=== PATIENT | female | born 1960 | race Caucasian/White ===

== ENCOUNTER 2017-04-04 10:23 | Emergency (ER) | payer OTHER ==
[~2017-04-04] VITALS: Ht 157.5 cm; Wt 102.0 kg
[~2017-04-04 10:23] MED LIST: ALBU8.5H3 INH; AMLO-147 PO; BENA40TA41 PO; BUPR100T14 PO; BUSP10TA2 PO; CITROMA PO; FAMO20TA18 PO; GLIM4TAB PO; METF1000 PO; NAPR-688 PO; ONDA4TAB35 PO; PIOG15TA4 PO; POLY17PO6 PO; PRAV40TA76 PO
[2017-04-04 10:25] VITALS: Ht 157.5 cm; Wt 102.0 kg
[2017-04-04] MEDS ORDERED: SOD CHLORIDE 0.9% 1,000 ML IV STA (12:58)
[2017-04-04 13:32] LABS: BASOPHILS % 0.3 % (0.0-2.0); EOSINOPHILS # 0.2 10^3/ul (0.0-0.5); EOSINOPHILS % 1.6 % (0.0-7.0); HEMATOCRIT 40.3 % (37.0-47.0); HEMOGLOBIN 13.2 g/dl (12.0-16.0); LYMPHOCYTES # 2.6 10^3/ul (0.8-2.9); LYMPHOCYTES % 23.7 % (15.0-51.0); MEAN CORPUSCULAR HEMOGLOBIN 29.4 pg (29.0-33.0); MEAN CORPUSCULAR HGB CONC 32.8 g/dl (32.0-37.0); MEAN CORPUSCULAR VOLUME 89.8 fl (82.0-101.0); MEAN PLATELET VOLUME 11.3 fl (7.4-10.4); MONOCYTE # 0.7 10^3/ul (0.3-0.9); MONOCYTES % 6.6 % (0.0-11.0); NEUTROPHIL # 7.4 10^3/ul (1.6-7.5); NEUTROPHILS % 67.4 % (39.0-77.0); PLATELET COUNT 269 10^3/UL (140-415); RED BLOOD COUNT 4.49 10^6/ul (4.20-5.40); RED CELL DISTRIBUTION WIDTH 13.2 % (11.5-14.5)
--- NOTE | 2017-04-04 13:38 | RADRPT ---
PROCEDURE: CT Brain without contrast. CLINICAL INDICATION: Syncope TECHNIQUE: CT scan of the brain was performed on a multidetector high-resolution CT scan. Axial im aging was obtained of the brain without contrast administration. Coronal and sagittal reformatted i mages were obtained from the axial source images. Standard CT scan of the head without contrast prot ocols were performed. The total exam CTDI equals 43.95 mGy and the total exam DLP equals 630.2 mGy-cm. One or more of the following dose reduction techniques were used: - Automated exposure control. - Adjustment of the mA and/or kV according to patient size. Use of iterative reconstruction technique. COMPARISON: None. FINDINGS: The ventricular system and peripheral CSF spaces are unremarkable. Negative for intracranial masses hemorrhages or midline shift. Ashley-white matter junction is unremarkable. The bones and calvarium are intact. The paranasal sinuses and mastoids are unremarkable. IMPRESSION: Negative CT scan of the head without contrast. RPTAT:AAJJ Physician Wilma Date Time Electronically viewed and signed by Physician Wilma on 04/04/2017 13:38 /
[2017-04-04 13:47] LABS: INR 0.91; PROTIME 12.3 Sec (12.2-14.2)
[2017-04-04 13:48] LABS: PARTIAL THROMBOPLASTIN TIME 29.2 Sec (25.0-35.0)
[2017-04-04 13:49] LABS: ANION GAP 19 (8-16); BLOOD UREA NITROGEN 13 mg/dl (7-20); CALCIUM 9.8 mg/dl (8.4-10.2); CARBON DIOXIDE 29 mmol/L (21-31); CHLORIDE 101 mmol/L (97-110); CREATININE 0.67 mg/dl (0.44-1.00); GLUCOSE 159 mg/dl (70-220); POTASSIUM 4.8 mmol/L (3.5-5.1); SODIUM 144 mmol/L (135-144)
--- NOTE | 2017-04-04 13:58 | RADRPT ---
PROCEDURE: XR left Knee. CLINICAL INDICATION: Trauma with pain. TECHNIQUE: 3 views of the left knee are available for review. Evaluation is partially limited due to the patient's body habitus with the notch view significantly limited due to positioning and the p atient's body habitus. COMPARISON: None available FINDINGS: There is no acute fracture, dislocation, or other osteoarticular abnormality. There is tricompartme ntal osteoarthritis, which is mild to moderate in the medial femorotibial compartment. There is an apparent soft tissue defect within the posteromedial tissues overlying the distal femoral diaphysis. There is questionable fullness within the underlying hamstrings musculature. The osseous mineraliz ation is within normal limits. There is no radiopaque foreign body. IMPRESSION: 1. Negative for acute fracture or dislocation. 2. Apparent soft tissue defect within the posteromedial soft tissues overlying the distal femoral d iaphysis with questionable fullness in the underlying hamstrings musculature. Direct visualization is recommended. CT or MRI can be performed for further evaluation. 3. Tricompartmental osteoarthritis, which is mild to moderate in the medial femorotibial compartmen t. RPTAT: GG .Jamir Monroe MD, MD Date Time Electronically viewed and signed by .Jamir Monroe MD, MD on 04/04/2017 13:58 .P/
[2017-04-04 14:03] LABS: TROPONIN-I < 0.012 ng/ml (0.00-0.12)
[2017-04-04] MEDS ORDERED: morphine 4 MG/ML VIAL IV STA (16:21)
[2017-04-04] MEDS ORDERED: KETOROLAC 30 MG INJ IV STA (16:21)
[2017-04-04 16:39] LABS: ADD UMIC YES; UR ASCORBIC ACID NEGATIVE (NEGATIVE); UR BILIRUBIN (Dip) NEGATIVE (NEGATIVE); UR BLOOD (Dip) NEGATIVE (NEGATIVE); UR CLARITY CLEAR (CLEAR); UR COLOR YELLOW (YELLOW); UR GLUCOSE (Dip) NEGATIVE (NEGATIVE); UR KETONES (Dip) NEGATIVE (NEGATIVE); UR LEUKOCYTE ESTERASE (Dip) 1+ Leu/ul (NEGATIVE); UR NITRITE (Dip) NEGATIVE (NEGATIVE); UR RBC 0 /HPF (0-5); UR SPECIFIC GRAVITY (Dip) 1.008 (1.003-1.030); UR TOTAL PROTEIN (Dip) NEGATIVE (NEGATIVE); UR UROBILINOGEN (Dip) NEGATIVE (NEGATIVE)
[2017-04-04] MEDS ORDERED: CEFTRIAXONE 1 GM/50 ML (PMX) 50 ML IVPB ONE (19:00)
[2017-04-04] MEDS ORDERED: HYDROCODONE/APAP (5/325) TAB PO ONE (20:30)
--- NOTE | 2017-04-04 20:37 | RADRPT ---
PROCEDURE: CT left knee without contrast. CLINICAL INDICATION: Evaluate soft tissue defects seen on prior radiographs. History of trauma wi th pain. TECHNIQUE: CT scan of the left knee was performed on a multi -slice scanner. No IV contrast was a dministered. Coronal and sagittal reformatted images were obtained from the axial source images. T he total exam DLP equals 742 mGy-cm. The CDTI volume was 18 mGy. Images were reviewed on a [employer] PACS workstation. One or more of the following dose reduction techniques were used: Automated exposure control Adjustment of the mA and/or kV according to patient size. Use of iterative reconstruction technique. COMPARISON: Same day radiographs FINDINGS: There is an acute mildly displaced fracture of the posterior tibial eminence at the insertion of the PCL with a hinge type fracture. There is about up to 3 - 4 mm superior displacement of the posterio r aspect of the fracture fragment; the superior aspect of the fracture fragment is attached to the p roximal tibia.. The fracture measures up to 1.7 cm AP and 1.0 cm transverse. Smaller adjacent fract ure fragments are also present. No other acute fractures are visualized. There is mild to moderate joint space narrowing of the medial compartment with osseous spurring. Mi ld joint space narrowing of the lateral compartment is also present. There is mild joint space narrowing of the lateral patellofemoral compartment. The quadriceps and patellar tendons are unremarkable. Hoffa's fat pad is unremarkable. There is a moderate joint effusion. The muscles around the knee are unremarkable. No discrete popliteal cyst is present. Trace fluid i s noted between the medial head gastrocnemius muscle and soleus muscle. The subcutaneous soft tissues are unremarkable. There is no discrete defect within the soft tissues . There is prominence of the subcutaneous fat within the soft tissues. RPTAT: AA IMPRESSION: 1. Posterior cruciate ligament avulsion fracture, type II. 2. The soft tissues are unremarkable without a discrete defect or mass within the soft tissues. 3. Mild to moderate medial compartment osteoarthrosis. 4. Moderate joint effusion. .Pati Barba MD, MD Date Time Electronically viewed and signed by .Pati Barba MD, on 04/04/2017 20:36 .T/
[2017-04-05 00:55] VITALS: BP 117/77; PULSE 74; RESP 18; TEMP 98
--- NOTE | 2017-04-07 21:45 | ERD ---
ER Documentation Chief Complaint Date/Time DATE: 04/07/17 TIME: 21:27 Chief Complaint LEFT KNEE PAIN S/P SYNCOPE THIS MORNING HPI 56 yo female who became very lightheaded this morning after she woke up. She had walked several steps when felt lightheaded. She fell down on to her left knee causing immediate pain. May have bumped her head. No other pain. Primarily came in for knee pain. No neuro deficits. Slightly lightheaded. No chest pain or fevers. ROS All systems reviewed and are negative except as per history of present illness. Medications Home Meds Active Scripts Magnesium Citrate* (Citroma*) 300 Ml Soln, 300 ML PO onc, #1 BOTTLE Prov:MIKE SABILLON DO 11/07/15 Reported Medications Benazepril Hcl* (Benazepril Hcl*) 40 Mg Tablet, 40 MG PO DAILY, #30 TAB 11/07/15 Famotidine* (Famotidine*) 20 Mg Tablet, 20 MG PO DAILY, #30 TAB 11/07/15 Pravastatin Sodium* (Pravastatin Sodium*) 40 Mg Tablet, 40 MG PO HS, TAB 11/07/15 Metformin Hcl* (Metformin Hcl*) 1,000 Mg Tablet, 1000 MG PO BID WITH MEALS, #30 TAB 11/07/15 Amlodipine Besylate* (Amlodipine Besylate*) 10 Mg Tablet, 10 MG PO DAILY, #30 TAB 11/07/15 Albuterol Sulfate* (Proair HFA*) 8.5 Gm Hfa.aer.ad, 2 PUFF INH Q6H Y for WHEEZING AND SOB, #1 INHALER 11/07/15 Bupropion Hcl* (Bupropion Hcl*) 100 Mg Tablet, 100 MG PO BID, TAB 11/07/15 Glimepiride* (Glimepiride*) 4 Mg Tablet, 4 MG PO WITH BREAKFAST, TAB 11/07/15 Buspirone Hcl* (Buspirone Hcl*) 10 Mg Tab, 10 MG PO DAILY, TAB 11/07/15 Pioglitazone Hcl* (Actos*) 15 Mg Tablet, 15 MG PO DAILY, #30 TAB 11/07/15 Discontinued Scripts Ondansetron Hcl* (Zofran* ODT) 4 mg -ODT Tab.disper, 4 MG PO Q6 Y for NAUSEA AND /OR VOMITING, #10 TAB Prov:MIKE SABILLON DO 11/07/15 Naproxen* (Naproxen*) 500 Mg Tablet, 500 MG PO BID Y for PAIN LEVEL 1-5, #20 TAB Prov:MIKE SABILLON DO 11/07/15 Polyethylene Glycol* (Miralax*) 17 Gm Powd.pack, 17 GM PO DAILY, #7 Prov:MIKE SABILLON DO 11/07/15 Allergies Allergies: Coded Allergies: No Known Allergy (Unverified , 04/04/17) PMhx/Soc History of Surgery: No Anesthesia Reaction: No Hx Neurological Disorder: No Hx Cardiac Disorders: No Hx Psychiatric Problems: No Hx Miscellaneous Medical Probl: No Hx Alcohol Use: No Hx Substance Use: No Hx Tobacco Use: No Smoking Status: Unknown if ever smoked Physical Exam Vitals Vital Signs Date Time Temp Pulse Resp B/P Pulse Ox O2 Delivery O2 Flow Rate FiO2 04/05/17 00:55 98.0 74 18 117/77 96 Room Air 04/04/17 23:00 98.2 78 20 124/67 96 Room Air 04/04/17 21:00 98.5 71 18 118/68 97 Room Air 04/04/17 19:09 64 20 122/65 98 Room Air 04/04/17 15:51 74 20 120/67 98 Room Air 04/04/17 10:25 97.6 95 18 143/80 99 Physical Exam Const: [] Mild distress Head: Atraumatic Eyes: Normal Conjunctiva, EOMI, KATHYA ENT: Normal External Ears, Nose and Mouth. Neck: Full range of motion..~ No meningismus. Resp: Clear to auscultation bilaterally Cardio: Regular rate and rhythm, no murmurs Abd: Soft, non tender, non distended. Normal bowel sounds Skin: No petechiae or rashes Back: No midline or flank tenderness Ext: No cyanosis, bilat leg obesity wtih no edema aprreciated, Left peripatellar tenderness, able to flex and extend but with pain. Distal pulses intact bilaterally Neur: Awake and alert and oriented x 3, CN II-12 intact, no cerebellar deficits Psych: Normal Mood and Affect Result Diagram: 04/04/17 1325 04/04/17 1325 Results 24 hrs Laboratory Tests Test 04/04/17 13:25 04/04/17 16:00 White Blood Count 11.010^3/ul Red Blood Count 4.4910^6/ul Hemoglobin 13.2g/dl Hematocrit 40.3% Mean Corpuscular Volume 89.8fl Mean Corpuscular Hemoglobin 29.4pg Mean Corpuscular Hemoglobin Concent 32.8g/dl Red Cell Distribution Width 13.2% Platelet Count 07845^3/UL Mean Platelet Volume 11.3fl Neutrophils % 67.4% Lymphocytes % 23.7% Monocytes % 6.6% Eosinophils % 1.6% Basophils % 0.3% Nucleated Red Blood Cells % 0.0/100WBC Neutrophils # 7.410^3/ul Lymphocytes # 2.610^3/ul Monocytes # 0.710^3/ul Eosinophils # 0.210^3/ul Basophils # 0.010^3/ul Nucleated Red Blood Cells # 0.010^3/ul Prothrombin Time 12.3Sec Prothrombin Time Ratio 1.0 INR International Normalized Ratio 0.91 Activated Partial Thromboplast Time 29.2Sec Sodium Level 144mmol/L Potassium Level 4.8mmol/L Chloride Level 101mmol/L Carbon Dioxide Level 29mmol/L Anion Gap 19 Blood Urea Nitrogen 13mg/dl Creatinine 0.67mg/dl Glucose Level 159mg/dl Calcium Level 9.8mg/dl Troponin I < 0.012ng/ml Urine Color YELLOW Urine Clarity CLEAR Urine pH 7.0 Urine Specific [place] 1.008 Urine Ketones NEGATIVEmg/dL Urine Nitrite NEGATIVEmg/dL Urine Bilirubin NEGATIVEmg/dL Urine Urobilinogen NEGATIVEmg/dL Urine Leukocyte Esterase 1+Frank/ul Urine Microscopic RBC 0/HPF Urine Microscopic WBC 7/HPF Urine Hemoglobin NEGATIVEmg/dL Urine Glucose NEGATIVEmg/dL Urine Total Protein NEGATIVEmg/dl Current Medications Medications (Trade) Dose Ordered Sig/Regino Route PRN Reason Start Time Stop Time Status Last Admin Dose Admin Sodium Chloride (NS) 1,000 ml @ 1,000 mls/hr Q1H STAT IV 04/04/17 12:58 04/04/17 13:57 DC 04/04/17 13:30 Morphine Sulfate (morphine) 4 mg ONCE STAT IV 04/04/17 16:21 04/04/17 16:23 DC 04/04/17 16:57 Ketorolac Tromethamine 30 mg 30 mg ONCE STAT IV 04/04/17 16:21 04/04/17 16:23 DC 04/04/17 16:57 Ceftriaxone Sodium (Rocephin) 50 ml @ 100 mls/hr ONCE ONCE IVPB 04/04/17 19:00 04/04/17 19:29 DC 04/04/17 19:08 Acetaminophen/ Hydrocodone Bitart ([place] (5/325)) 2 tab ONCE ONCE PO 04/04/17 20:30 04/04/17 20:31 DC Procedures/MDM Left knee contusion and near syncope. No signs of cardiac dysfunction. Observed for hours in ER. No signs of cardiac arrhythmia. Mild elevations of white count with UA suspicious for UTI. Given 1 L NS. Pain decreased with toradol and morphine. No fracture on knee XR. CT recommended for possible soft tissue defect. Unexpected computer downtime makes CT viewing temporarily unavailable. Plan is discharge [facility] pain medicine and ciprofloxacin. Probable knee immobilizer. Follow up with PCP and ortho. Return precautions. Final dispo left to oncoming physician. EKG interpretation: NSR rate 76, Normal axis, Normal intervals, No st changes concerning for ischemia. community health planning director interpretation: NSR without arrhythmia Braint CT interpretation: I see no acute process. No hemorrhage no mass effect , no midline shift no skull fracture. Knee XR: No fracture or dislocation. Departure Diagnosis: Primary Impression: Syncope Additional Impressions: Contusion of left knee UTI (urinary tract infection) Condition: Stable MIKE SABILLON DO Apr 07, 2017 21:44
== END 2017-04-05 01:02 | disposition home or self-care (01) ==
LOC: E/R 10:23
DX: R55 Syncope and collapse (principal); S80.02XA Contusion of left knee, initial encounter; N39.0 Urinary tract infection, site not specified; W18.39XA Other fall on same level, initial encounter; Y92.9 Unspecified place or not applicable; Z79.84 Long term (current) use of oral hypoglycemic drugs
CPT/HCPCS: 36415; 70450; 73562; 73700; 80048; 81001; 84484; 85025; 85610; 85730; 93005; 96374; 96375; 99285; J0696; J1885; J2270; J7030